=== PATIENT | female | born 1995 | race African-American/Black ===

== ENCOUNTER 2017-02-24 14:06 | Emergency (ER) | payer OTHER, SELFPAY ==
[2017-02-24] MEDS ORDERED: Naproxen 500 MG TAB ONE (14:30)
== END 2017-02-24 14:55 | disposition home or self-care (01) ==
LOC: MADERS 14:06
DX: M25.562 Pain in left knee (principal)
CPT/HCPCS: 99283

== ENCOUNTER 2017-08-21 10:10 | Emergency (ER) | payer SELFPAY ==
[2017-08-21 10:42] LABS: Clarity Hazy (Clear); Glucose, Urine (Dipstick) Negative (Negative); Leukocyte Moderate (Negative); Nitrite Negative (Negative); Protein, Urine (Dipstick) Negative (Neg-Trace); pH, Urine 6.5 (5.0-9.0)
[2017-08-21 10:43] LABS: Bilirubin Negative (Negative); Blood, Urine Trace (Negative)
[2017-08-21 10:44] LABS: Bacteria/HPF 2+ HPF (None Seen); RBC/HPF 0-3 HPF (0-3)
== END 2017-08-21 11:00 | disposition home or self-care (01) ==
LOC: MADERS 10:10
DX: N30.90 Cystitis, unspecified without hematuria (principal); B37.3 Candidiasis of vulva and vagina
CPT/HCPCS: 81003; 81015; 99283

== ENCOUNTER 2017-10-12 13:18 | Emergency (ER) | payer SELFPAY ==
[2017-10-12 14:24] LABS: Bilirubin Negative (Negative); Blood, Urine Negative (Negative); Glucose, Urine (Dipstick) Negative (Negative); Leukocyte Negative (Negative); Nitrite Negative (Negative); Protein, Urine (Dipstick) Negative (Neg-Trace); Specific Gravity, Urine 1.015 (1.005-1.030); Urobilinogen 0.2 mg/dL (0.2-1.0); pH, Urine 7.5 (5.0-9.0)
[2017-10-12 14:27] LABS: Bacteria/HPF Rare-Few HPF (None Seen); Clarity Hazy (Clear); Pregnancy Test - Urine (BHCG) Negative (Negative); RBC/HPF 0-3 HPF (0-3); WBC/HPF 0-3 HPF (0-3)
[2017-10-12 14:28] LABS: Pregu Control Background? CLEAR/WHITE (CLR/WHITE); Pregu Control Bar Appear? YES (CONTROL BAR); Specific Gravity 1.015 (1.002-1.036)
--- NOTE | 2017-10-12 15:23 | RAD ---
LUMBAR SPINE 3 VIEWS: Date: 10/12/17 HISTORY: Back pain. FINDINGS: There are five lumbar-type vertebrae. Pedicles are intact. Minimal leftward convex curvature. Vertebr al body heights and AP alignment are maintained. No acute fracture or dislocation. IMPRESSION: No acute osseous abnormalities are demonstrated. POS: LINK
== END 2017-10-12 15:10 | disposition home or self-care (01) ==
LOC: MADERS 13:18
DX: M54.5 Low back pain (principal)
CPT/HCPCS: 72100; 81001; 81025; 87086

== ENCOUNTER 2018-02-20 08:01 | Emergency (ER) | payer SELFPAY | END 2018-02-20 08:40 | disposition home or self-care (01) | LOC: MADERS 08:01 | DX: L03.032 Cellulitis of left toe (principal) | CPT/HCPCS: 10060 ==

== ENCOUNTER 2019-02-22 01:02 | Emergency (ER) | payer OTHER, SELFPAY ==
[2019-02-22] MEDS ORDERED: Ondansetron ODT 4 MG TAB ONE (01:32)
[2019-02-22 01:58] LABS: #Basophils 0.1 thou/uL (0.0-0.2); #Lymphocytes 1.5 thou/uL (1.20-3.40); #Monocytes 0.4 thou/uL (0.11-0.59); #Neutrophils 3.7 thou/uL (1.40-6.50); %Basophils 1.1 % (0.0-1.0); %Eosinophils 0.4 % (0.0-10.0); %Lymphocytes 26.5 % (21.0-51.0); %Monocytes 7.2 % (0.0-10.0); %Neutrophils 64.9 % (42.0-75.0); Hemoglobin 10.9 g/dL (12.0-16.0); Mean Corpuscular HGB CONC 31.9 g/dL (32.0-36.0); Mean Corpuscular Hemoglobin 27.1 pg (27.0-31.0); Mean Corpuscular Volume 85.1 fL (78.0-98.0); Mean Platelet Volume 6.3 fL (7.4-10.4); Platelet Count 303 thou/uL (130-400); RBC Distribution Width 11.9 % (11.5-14.5); Red Blood Cell (RBC) Count 4.02 mill/uL (4.20-5.40); White Blood Cell (WBC) Count 5.6 thou/uL (4.8-10.8)
[2019-02-22 02:09] LABS: INR-International Normal Ratio 0.9; PTT 25.8 SEC (22.9-36.1); Prothrombin Time 12.5 SEC (12.0-14.7)
[2019-02-22 02:12] LABS: Anion Gap 14 mmol/L (10-20); BUN (Urea Nitrogen) 7 mg/dL (7.0-18.7); Calc. Creatinine Clearance 0 mL/min (70-130); Calcium 9.7 mg/dL (7.8-10.44); Carbon Dioxide 24 mmol/L (22-29); Chloride 104 mmol/L (98-107); Estimated GFR-MDRD Greater than 90; Glucose 98 mg/dL (70-105); Potassium 3.9 mmol/L (3.5-5.1); Sodium 138 mmol/L (136-145)
== END 2019-02-22 02:22 | disposition left against medical advice (07) ==
LOC: MADERS 01:02
DX: O99.611 Diseases of the digestive system complicating pregnancy, first trimester (principal); K92.0 Hematemesis; Z3A.01 Less than 8 weeks gestation of pregnancy
CPT/HCPCS: 36415; 80048; 84702; 85025; 85610; 85730; 99284; Q0162

== ENCOUNTER 2019-03-12 23:18 | Emergency (ER) | payer MEDICAID, OTHER ==
[2019-03-12] MEDS ORDERED: Ondansetron PF 4 MG/2 ML Vial ONE (23:50)
[2019-03-12] MEDS ORDERED: Sodium Chloride 0.9% 0 ML ONE (23:50)
[2019-03-13] MEDS ORDERED: Ondansetron ODT 4 MG TAB ONE (00:08)
[2019-03-13 00:10] LABS: Pregnancy Test - Urine (BHCG) POSITIVE (Negative); Pregu Control Background? CLEAR/WHITE (CLR/WHITE); Pregu Control Bar Appear? YES (CONTROL BAR); Specific Gravity 1.023 (1.002-1.036)
[2019-03-13 00:35] LABS: Bilirubin Small (Negative); Blood, Urine Trace (Negative); Clarity Clear (Clear); Glucose, Urine (Dipstick) Negative (Negative); Leukocyte Negative (Negative); Nitrite Negative (Negative); Protein, Urine (Dipstick) 30 mg/dL (Neg-Trace)
[2019-03-13 00:43] LABS: RBC/HPF 0-3 HPF (0-3); WBC/HPF 0-3 HPF (0-3)
[2019-03-13 00:44] LABS: Bacteria/HPF 1+ HPF (None Seen)
== END 2019-03-13 00:20 | disposition home or self-care (01) ==
LOC: MADERS 23:18
DX: O21.9 Vomiting of pregnancy, unspecified (principal); Z3A.09 9 weeks gestation of pregnancy
CPT/HCPCS: 81003; 81015; 81025; 99284; J2405; J7050; Q0162

== ENCOUNTER 2019-03-18 22:31 | Emergency (ER) | payer MEDICAID ==
[~2019-03-18 22:31] MED LIST: Sodium Chloride 0.9% 500 ML BAG ONE
--- NOTE | 2019-03-18 23:37 | RAD ---
Radiograph mandible 3 views: DATE: 03/18/2019 Time: 11:22 PM HISTORY: 23-year-old female with sudden locked open jaw position. FINDINGS: No fracture of the mandibular body identified. The TMJs are not well visualized on the oblique views. IMPRESSION: Poor visualization of temporal mandibular joints.
[2019-03-18] MEDS ORDERED: Metoclopramide HCl 10 MG/2 ML VIAL ONE (23:41)
[2019-03-18] MEDS ORDERED: Morphine 4 MG/ML VIAL ONE (23:45)
[2019-03-18 23:57] LABS: #Monocytes 0.5 thou/uL (0.11-0.59); #Neutrophils 2.8 thou/uL (1.40-6.50); %Basophils 0.9 % (0.0-1.0); %Eosinophils 0.3 % (0.0-10.0); %Lymphocytes 22.4 % (21.0-51.0); %Monocytes 10.9 % (0.0-10.0); %Neutrophils 65.5 % (42.0-75.0); Hemoglobin 9.9 g/dL (12.0-16.0); Mean Corpuscular HGB CONC 34.2 g/dL (32.0-36.0); Mean Corpuscular Hemoglobin 27.9 pg (27.0-31.0); Mean Corpuscular Volume 81.6 fL (78.0-98.0); Mean Platelet Volume 6.4 fL (7.4-10.4); Platelet Count 290 thou/uL (130-400); RBC Distribution Width 11.2 % (11.5-14.5); Red Blood Cell (RBC) Count 3.54 mill/uL (4.20-5.40); White Blood Cell (WBC) Count 4.2 thou/uL (4.8-10.8)
[2019-03-19 00:26] LABS: ALT (SGPT) 184 U/L (8-55); AST (SGOT) 87 U/L (5-34); Albumin 3.8 g/dL (3.5-5.0); Alkaline Phosphatase 70 U/L (40-150); Anion Gap 15 mmol/L (10-20); BUN (Urea Nitrogen) 6 mg/dL (7.0-18.7); Bilirubin, Total 0.5 mg/dL (0.2-1.2); Calc. Creatinine Clearance 0 mL/min (70-130); Calcium 9.2 mg/dL (7.8-10.44); Carbon Dioxide 22 mmol/L (22-29); Chloride 102 mmol/L (98-107); Estimated GFR-MDRD Greater than 90; Globulin 3.4 g/dL (2.4-3.5); Glucose 94 mg/dL (70-105); Lipase 15 U/L (8-78); Potassium 3.3 mmol/L (3.5-5.1); Protein, Total 7.2 g/dL (6.0-8.3); Sodium 136 mmol/L (136-145)
== END 2019-03-18 23:55 | disposition short-term general hospital (02) ==
LOC: MADERS 22:31
DX: O9A.211 Injury, poisoning and certain other consequences of external causes complicating pregnancy, first trimester (principal); S03.00XA Dislocation of jaw, unspecified side, initial encounter; O21.9 Vomiting of pregnancy, unspecified; Z79.899 Other long term (current) drug therapy; Z3A.10 10 weeks gestation of pregnancy; X58.XXXA Exposure to other specified factors, initial encounter
CPT/HCPCS: 70110; 80053; 83690; 85025; 96374; 96375; J2270; J2765; J7050

== ENCOUNTER 2019-11-04 12:34 | Emergency (ER) | payer OTHER ==
[2019-11-04] MEDS ORDERED: Sodium Chloride 0.9% 1,000 ML ONE (13:13)
[2019-11-04] MEDS ORDERED: Ketorolac Tromethamine 30 MG/ML VIAL ONE (13:13)
[2019-11-04] MEDS ORDERED: Ondansetron PF 4 MG/2 ML Vial ONE (13:13)
[2019-11-04 13:44] LABS: #Lymphocytes 0.8 thou/uL (1.20-3.40); #Monocytes 0.5 thou/uL (0.11-0.59); #Neutrophils 7.6 thou/uL (1.40-6.50); %Basophils 0.2 % (0.0-1.0); %Eosinophils 0.2 % (0.0-10.0); %Lymphocytes 8.9 % (21.0-51.0); %Monocytes 5.1 % (0.0-10.0); %Neutrophils 85.6 % (42.0-75.0); Hemoglobin 11.6 g/dL (12.0-16.0); Mean Corpuscular HGB CONC 30.6 g/dL (32.0-36.0); Mean Corpuscular Volume 88.4 fL (78.0-98.0); Mean Platelet Volume 6.5 fL (7.4-10.4); Platelet Count 317 thou/uL (130-400); Red Blood Cell (RBC) Count 4.28 mill/uL (4.20-5.40); White Blood Cell (WBC) Count 8.9 thou/uL (4.8-10.8)
[2019-11-04 13:48] LABS: Bilirubin Negative (Negative); Blood, Urine Trace (Negative); Glucose, Urine (Dipstick) Negative (Negative); Leukocyte Negative (Negative); Nitrite Negative (Negative); Protein, Urine (Dipstick) Negative (Neg-Trace)
[2019-11-04 13:49] LABS: Clarity Hazy (Clear)
--- NOTE | 2019-11-04 13:50 | CT ---
CT ABDOMEN AND PELVIS WITHOUT CONTRAST: 11/04/19 HISTORY: Right flank pain for a day. Three weeks status post section. COMPARISON: None. TECHNIQUE: Multiple contiguous axial images were obtained in a CTA of the abdomen and pelvis without contrast. S agittal and coronal reformats were performed. FINDINGS: Calcified gallstones are seen in the gallbladder. The liver, kidneys, adrenal glands, spleen, and jin creas are unremarkable, although evaluation is limited without IV contrast. No free air or stranding changes are seen in the abdomen or pelvis. The uterus is still mildly enlarg ed. There is a 2.2 cm fluid collection along the anterior aspect of the uterus likely at the site of the lower uterine incision. A small amount of free fluid is seen in the pelvis. The large and small bowel are unremarkable. The appendix is normal. No abdominal or pelvic lymphadeno rose are seen. The osseous structures and visualized inferior thorax are unremarkable. Stranding changes from recent section are seen in the anterior lower abdominal wall. IMPRESSION: 1. Cholelithiasis. 2. Small fluid collection along the lower uterine segment could represent a small seroma. POS: [facility]STOPHER[facility]
[2019-11-04 13:55] LABS: Bacteria/HPF Rare-Few HPF (None Seen); RBC/HPF 0-3 HPF (0-3); WBC/HPF None Seen HPF (0-3)
[2019-11-04 14:01] LABS: Anion Gap 16 mmol/L (10-20); BUN (Urea Nitrogen) 10 mg/dL (7.0-18.7); Calc. Creatinine Clearance 0 mL/min (70-130); Calcium 8.8 mg/dL (7.8-10.44); Carbon Dioxide 21 mmol/L (22-29); Chloride 107 mmol/L (98-107); Estimated GFR-MDRD Greater than 90; Glucose 95 mg/dL (70-105); Potassium 3.9 mmol/L (3.5-5.1); Sodium 140 mmol/L (136-145)
== END 2019-11-04 14:25 | disposition home or self-care (01) ==
LOC: MADERS 12:34
DX: R10.9 Unspecified abdominal pain (principal)
CPT/HCPCS: 74176; 80048; 81003; 81015; 85025; 96374; 96375; J1885; J2405; J7050

== ENCOUNTER 2020-04-04 08:52 | Emergency (ER) | payer OTHER ==
[2020-04-04 09:18] LABS: Bilirubin Negative (Negative); Blood, Urine Negative (Negative); Clarity Clear (Clear); Glucose, Urine (Dipstick) Negative (Negative); Ketone, Urine Negative (Negative); Leukocyte Negative (Negative); Nitrite Negative (Negative); Protein, Urine (Dipstick) Negative (Neg-Trace); Specific Gravity, Urine 1.025 (1.005-1.030); Urobilinogen 0.2 mg/dL (Less than 2)
== END 2020-04-04 09:30 | disposition home or self-care (01) ==
LOC: MADERS 08:52
DX: M54.5 Low back pain (principal); M54.6 Pain in thoracic spine
CPT/HCPCS: 81003; 99283

== ENCOUNTER 2020-04-23 17:49 | Emergency (ER) | payer OTHER ==
[2020-04-25 10:57] LABS: SARS-CoV-2 MS2 Positive; SARS-CoV-2 N Gene Positive; SARS-CoV-2 S Gene Positive; SARS-CoV-2 by NAA DETECTED (NotDetected); SARS-CoV-2 orf1ab Positive
== END 2020-04-23 18:58 | disposition home or self-care (01) ==
LOC: MADERS 17:49
DX: U07.1 COVID-19 (principal)
CPT/HCPCS: 87635; 99283; U0003

== ENCOUNTER 2020-11-30 13:46 | Emergency (ER) | payer OTHER ==
[2020-11-30] MEDS ORDERED: Ketorolac Tromethamine 60 MG/2 ML VIAL ONE (14:34)
== END 2020-11-30 14:50 | disposition home or self-care (01) ==
LOC: MADERS 13:46
DX: S03.03XA Dislocation of jaw, bilateral, initial encounter (principal); X50.1XXA Overexertion from prolonged static or awkward postures, initial encounter
CPT/HCPCS: 21480; 96372; J1885

== ENCOUNTER 2020-12-10 03:16 | Emergency (ER) | payer OTHER ==
[2020-12-10] MEDS ORDERED: Ketorolac Tromethamine 30 MG/ML VIAL ONE (04:12)
[2020-12-10] MEDS ORDERED: Sodium Chloride 0.9% 1,000 ML ONE (04:12)
[2020-12-10] MEDS ORDERED: Acetaminophen 500 MG TAB ONE (04:12)
[2020-12-10 04:28] LABS: BHCG - Serum Negative (NEGATIVE); Pregs Control Background? CLEAR/WHITE (CLR/WHITE); Pregs Control Bar Appear? YES (CONTROL BAR)
[2020-12-10 04:34] LABS: Band 1 % (5-11); Hemoglobin 10.2 g/dL (12.0-16.0); Lymphocytes 11 % (21-51); MDiff Complete? YES; Mean Corpuscular HGB CONC 30.9 g/dL (32.0-36.0); Mean Corpuscular Hemoglobin 26.5 pg (27.0-31.0); Mean Corpuscular Volume 85.9 fL (78.0-98.0); Mean Platelet Volume 6.9 fL (7.4-10.4); Neutrophil 85 % (42-75); Platelet Count 273 thou/uL (130-400); Platelet Morphology Comment Appears Adequate; RBC Distribution Width 12.5 % (11.5-14.5); RBC Morphology Normal; Reactive Lymphocytes 3 % (0-10); Red Blood Cell (RBC) Count 3.85 mill/uL (4.20-5.40); White Blood Cell (WBC) Count 9.8 thou/uL (4.8-10.8)
[2020-12-10 04:35] LABS: Anion Gap 16 mmol/L (10-20); BUN (Urea Nitrogen) 8 mg/dL (7.0-18.7); Calc. Creatinine Clearance 0 mL/min (70-130); Calcium 8.8 mg/dL (7.8-10.44); Carbon Dioxide 21 mmol/L (22-29); Chloride 102 mmol/L (98-107); Glucose 169 mg/dL (70-105); Potassium 3.2 mmol/L (3.5-5.1); Sodium 136 mmol/L (136-145)
== END 2020-12-10 05:03 | disposition home or self-care (01) ==
LOC: MADERS 03:16
DX: M54.42 Lumbago with sciatica, left side (principal); M54.2 Cervicalgia; R51.9 Headache, unspecified
CPT/HCPCS: 80048; 83605; 84703; 85025; 96374; J1885; J7050

== ENCOUNTER 2022-02-20 13:46 | Outpatient (CLI) | payer OTHER ==
[2022-02-21 14:32] LABS: Chlamydia by PCR Not Detected (NotDetected); GC by PCR Not Detected (NotDetected)
== END 2022-02-20 13:47 | disposition home or self-care (01) ==
LOC: MADLABBHPM 13:46
PROVIDERS: ATTEND Family Medicine
DX: Z11.3 Encounter for screening for infections with a predominantly sexual mode of transmission (principal); N30.00 Acute cystitis without hematuria; N89.8 Other specified noninflammatory disorders of vagina
CPT/HCPCS: 87077; 87086; 87186; 87480; 87491; 87510; 87591; 87660